=== PATIENT | female | born 1945 | race Caucasian/White ===

== ENCOUNTER 2022-10-01 08:33 | Emergency (ER) | payer MEDICARE, OTHER ==
[2022-10-01 09:21] LABS: Basophils % (A) 1 %; Eosinophils # (A) 0.1 k/uL (0-0.7); Eosinophils % (A) 1 %; HCT 38.9 % (34.0-46.0); HGB 12.3 gm/dL (11.4-16.0); Hypochromasia Slight; Lymphocytes # (A) 0.9 k/uL (1.0-4.8); Lymphocytes % (A) 15 %; MCH 29.5 pg (25.0-35.0); MCHC 31.6 g/dL (31.0-37.0); MCV 93.2 fL (80.0-100.0); Monocytes # (A) 0.3 k/uL (0-1.0); Monocytes % (A) 5 %; Neutrophils # (A) 4.4 k/uL (1.3-7.7); Neutrophils % (A) 76 %; Platelet Count 258 k/uL (150-450); RBC 4.18 m/uL (3.80-5.40); RDW 13.2 % (11.5-15.5); WBC 5.8 k/uL (3.8-10.6)
[2022-10-01 09:26] LABS: INR 0.9 (<1.2); Partial Thromboplastin Time 22.2 sec (22.0-30.0)
--- NOTE | 2022-10-01 09:38 | XR ---
EXAMINATION TYPE: XR chest 2V DATE OF EXAM: 10/01/2022 9:27 AM COMPARISON: Chest radiographs from 01/08/2011 TECHNIQUE: XR chest 2V Frontal and lateral views of the chest. CLINICAL INDICATION:Female, 76 years old with history of altered mental status; FINDINGS: Lungs/Pleura: Prominent interstitial lung markings are seen scattered throughout the lungs. No eviden ce of focal consolidation, pneumothorax or pleural effusion. Pulmonary vascularity: Unremarkable. Heart/mediastinum: Cardiomediastinal silhouette is unremarkable. Partially calcified left pulmonary h ilum lymph nodes and left lateral lung calcification are unchanged from 2011. Musculoskeletal: No acute osseous pathology. IMPRESSION: Chronic changes without acute pulmonary process. No significant change from prior.
--- NOTE | 2022-10-01 10:04 | ED ---
Neuro HPI - General Chief Complaint: Neuro Symptoms/Deficit Stated Complaint: Stroke symptoms Time Seen by Provider: 10/01/22 08:46 Source: patient, RN notes reviewed Mode of arrival: ambulatory Limitations: no limitations - History of Present Illness Is the patient presenting with stroke symptoms?: Yes Last Known Well Date: 10/01/22 Last Known Well Time: 13:00 Initial Comments: This is a 76-year-old female presents emergency Department chief complaint of possible stroke. Patient developed symptoms yesterday afternoon which she had right leg weakness, confusion. Family states that she's been having issues with recent and past memory. Patient seems to be confused at times does not describe which she wants to. Patient has no upper extremity symptoms. Patient had prior minor the past, history of hypertension. Denies any blood thinners denies any headache denies any chest pain palpitations nausea vomiting days trauma. - Related Data Home Medications: Home Medications Medication Instructions Recorded Confirmed Atorvastatin [Lipitor] 20 mg PO HS 10/01/22 10/01/22 Metoprolol Tartrate [Lopressor] 12.5 mg PO HS 10/01/22 10/01/22 lisinopriL [Zestril] 5 mg PO HS 10/01/22 10/01/22 Allergies/Adverse Reactions: Allergies Allergy/AdvReac Type Severity Reaction Status Date / Time No Known Allergies Allergy Verified 10/01/22 10:58 Review of Systems ROS Statement: Those systems with pertinent positive or pertinent negative responses have been documented in the HPI. ROS Other: All systems not noted in ROS Statement are negative. General Exam Limitations: no limitations General appearance: alert, in no apparent distress Head exam: Present: atraumatic, normocephalic, normal inspection Eye exam: Present: normal appearance, PERRL, EOMI. Absent: scleral icterus, conjunctival injection, periorbital swelling ENT exam: Present: normal exam, normal oropharynx, mucous membranes moist Neck exam: Present: normal inspection, full ROM. Absent: tenderness, meningismus, lymphadenopathy Respiratory exam: Present: normal lung sounds bilaterally. Absent: respiratory distress, wheezes, rales, rhonchi, stridor Cardiovascular Exam: Present: regular rate, normal rhythm, normal heart sounds. Absent: systolic murmur, diastolic murmur, rubs, gallop, clicks Neurological exam: Present: alert, CN II-XII intact, other (NIH 3). Absent: oriented X3 Expanded Neurological exam: Present: memory loss-remote event, memory loss-recent event Patient oriented to: Present: person, place, time Speech: Present: fluid speech Cranial nerves: EOM's Intact: Normal, Gag Reflex: Normal, Tongue Deviation: Normal, Facial Sensation: Normal, Facial Palsy with Forehead Movement: Normal, Facial Palsy without Forehead Movement: Normal Cerebellar function: Finger to Nose: Normal Upper motor neuron: Delbert Neglect: Normal Sensory exam: Upper Extremity Light Touch: Normal, Upper Extremity Pin Prick: Normal, Lower Extremity Light Touch: Normal, Lower Extremity Pin Prick: Normal Motor strength exam: RUE: 5, LUE: 5, RLE: 3, LLE: 5 Eye Response: (4) open spontaneously Motor Response: (6) obeys commands Verbal Response: (5) oriented Jacob Total: 15 Skin exam: Present: warm, dry, intact, normal color. Absent: rash Stroke MDM - Lab Data Result diagrams: 10/01/22 08:57 10/01/22 08:57 Lab Results 10/01/22 10/01/22 10/01/22 Range/Units 08:57 08:57 08:57 WBC 5.8 (3.8-10.6) k/uL RBC 4.18 (3.80-5.40) m/uL Hgb 12.3 (11.4-16.0) gm/dL Hct 38.9 (34.0-46.0) % MCV 93.2 (80.0-100.0) fL MCH 29.5 (25.0-35.0) pg MCHC 31.6 (31.0-37.0) g/dL RDW 13.2 (11.5-15.5) % Plt Count 258 (150-450) k/uL MPV 8.0 Neutrophils % 76 % Lymphocytes % 15 % Monocytes % 5 % Eosinophils % 1 % Basophils % 1 % Neutrophils # 4.4 (1.3-7.7) k/uL Lymphocytes # 0.9 L (1.0-4.8) k/uL Monocytes # 0.3 (0-1.0) k/uL Eosinophils # 0.1 (0-0.7) k/uL Basophils # 0.0 (0-0.2) k/uL Hypochromasia Slight PT 10.0 (9.0-12.0) sec INR 0.9 (<1.2) APTT 22.2 (22.0-30.0) sec Sodium 137 (137-145) mmol/L Potassium 4.1 (3.5-5.1) mmol/L Chloride 101 (98-107) mmol/L Carbon Dioxide 29 (22-30) mmol/L Anion Gap 7 mmol/L BUN 14 (7-17) mg/dL Creatinine 0.68 (0.52-1.04) mg/dL Est GFR (CKD-EPI)AfAm >90 (>60 ml/min/1.73 sqM) Est GFR (CKD-EPI)NonAf 84 (>60 ml/min/1.73 sqM) Glucose 162 H (74-99) mg/dL Calcium 9.1 (8.4-10.2) mg/dL Total Bilirubin 0.4 (0.2-1.3) mg/dL AST 28 (14-36) U/L ALT 20 (4-34) U/L Alkaline Phosphatase 127 H (38-126) U/L Troponin I (0.000-0.034) ng/mL Total Protein 7.5 (6.3-8.2) g/dL Albumin 3.9 (3.5-5.0) g/dL 10/01/22 Range/Units 08:57 WBC (3.8-10.6) k/uL RBC (3.80-5.40) m/uL Hgb (11.4-16.0) gm/dL Hct (34.0-46.0) % MCV (80.0-100.0) fL MCH (25.0-35.0) pg MCHC (31.0-37.0) g/dL RDW (11.5-15.5) % Plt Count (150-450) k/uL MPV Neutrophils % % Lymphocytes % % Monocytes % % Eosinophils % % Basophils % % Neutrophils # (1.3-7.7) k/uL Lymphocytes # (1.0-4.8) k/uL Monocytes # (0-1.0) k/uL Eosinophils # (0-0.7) k/uL Basophils # (0-0.2) k/uL Hypochromasia PT (9.0-12.0) sec INR (<1.2) APTT (22.0-30.0) sec Sodium (137-145) mmol/L Potassium (3.5-5.1) mmol/L Chloride (98-107) mmol/L Carbon Dioxide (22-30) mmol/L Anion Gap mmol/L BUN (7-17) mg/dL Creatinine (0.52-1.04) mg/dL Est GFR (CKD-EPI)AfAm (>60 ml/min/1.73 sqM) Est GFR (CKD-EPI)NonAf (>60 ml/min/1.73 sqM) Glucose (74-99) mg/dL Calcium (8.4-10.2) mg/dL Total Bilirubin (0.2-1.3) mg/dL AST (14-36) U/L ALT (4-34) U/L Alkaline Phosphatase (38-126) U/L Troponin I <0.012 (0.000-0.034) ng/mL Total Protein (6.3-8.2) g/dL Albumin (3.5-5.0) g/dL - Medical Decision Making Was pt. sent in by a medical professional or institution? @ -no Did you speak to anyone other than the patient for history? @ -family provided at home symptoms, prior medical history Did you review nursing and triage notes? @ -Agree and reviewed Were old charts reviewed? @ -no Differential Diagnosis? @ -CVA, TIA, intracranial mass, sepsis, this list is not meant to be all- inclusive EKG interpreted by me (3pts min.)? @ -EKG interpreted by me sinus rhythm with rate of 67 VT 153 QRS 88 QT/QTC/423 X-rays interpreted by me (1pt min.)? @ -Chest x-ray no acute process as interpreted by me CT interpreted by me (1pt min.)? @ -Ctbrain the brain bilateral subdural hemorrhages acute on chronic suspected, rightward midline shift 7 mm, interaxil mass. U/S interpreted by me (1pt. min.)? @ -[no] What testing was considered but not performed? (CT, X-rays, U/S, labs)? Why? @MRI was considered though patient will have performed at transfer facility What meds were considered but not given? Why? @ -Mannitol, blood pressure control were considered though patient vitals are stable. Did you discuss the management of the patient with other professionals? @ -Dr. Govea neurosurgery at [facility] Did you reconcile home meds? @ -no Was smoking cessation discussed for >3mins.? @ -no Was critical care preformed (if so, how long)? @ -35 Were there social determinants of health that impacted care today? How? (Homelessness, low income, unemployed, alcoholism, drug addiction, transportation, low edu. Level, literacy, decrease access to med. care, senior living, rehab)? @ -no Was there de-escalation of care discussed even if they declined? (Discuss DNR or withdrawal of care, Hospice)? @ -no What co-morbidities impacted this encounter? (DM, HTN, Smoking, COPD, CAD, Cancer, CVA, Hep., AIDS, mental health diagnosis, sleep apnea, morbid obesity)? @ -HTN Was patient admitted / discharged? @ -Transferred [facility] Undiagnosed new problem with uncertain prognosis? @ -yes Drug Therapy requiring intensive monitoring for toxicity (Heparin, Nitro, Insulin, Cardizem)? @ -no Were any procedures done? @ -no Diagnosis/symptom? @ -Subdural hematoma Acute, or Chronic, or Acute on Chronic? @ -Acute Uncomplicated (without systemic symptoms) or Complicated (systemic symptoms)? @ -Complicated Side effects of treatment? @ -none Exacerbation, Progression, or Severe Exacerbation] @ -no Poses a threat to life or bodily function? @ -yes Diagnosis/symptom? @ -Intracranial mass/possible aneurysm Acute, or Chronic, or Acute on Chronic? @Acute Uncomplicated (without systemic symptoms) or Complicated (systemic symptoms)? @ -Dictated Side effects of treatment? @ -[none] Exacerbation, Progression, or Severe Exacerbation] @ -[no] Poses a threat to life or bodily function? @ -[yes I did discuss case with [facility] accepts transfer. Patient's CT without contrast showed probable intra-axial mass, subdural hematoma. After discussed the case with [facility] CT was interpreted and there may be a calcified aneurysm versus mass. Patient is having no progressive symptoms vitals are stable patient was given Decadron. She does not require blood press ure control distress time. I did update family regarding current condition. - EKG Data -: EKG Interpreted by Me Past Medical History Past Medical History: Chest Pain / Angina, Hypertension, Myocardial Infarction (NH) History of Any Multi-Drug Resistant Organisms: None Reported Past Surgical History: No Surgical Hx Reported Past Psychological History: No Psychological Hx Reported Smoking Status: Never smoker Past Alcohol Use History: None Reported Past Drug Use History: None Reported Course Vital Signs 10/01/22 10/01/22 08:35 10:52 Temperature 98 F Pulse Rate 72 69 Respiratory 20 18 Rate Blood Pressure 119/79 136/80 O2 Sat by Pulse 96 98 Oximetry Critical Care Time Critical Care Time: Yes Total Critical Care Time: 35 Disposition Clinical Impression: Subdural hematoma, Intracranial mass, Midline shift of brain Narrative: Possible cerebral aneurysm Disposition: OTHER INSTITUTION NOT DEFINED Referrals: Reema Chavez MD [Primary Care Provider] - 1-2 days Time of Disposition: 10:55 - Out of Hospital Transfer - Req. Specs Out of Hospital Transfer - Requested Specifics: Other Emergency Center ([facility])
[2022-10-01 10:09] LABS: ALT 20 U/L (4-34); AST 28 U/L (14-36); African American GFR (CKD) >90 (>60 ml/min/1.73 sqM); Albumin 3.9 g/dL (3.5-5.0); Alkaline Phosphatase 127 U/L (38-126); Anion Gap 7 mmol/L; Blood Urea Nitrogen 14 mg/dL (7-17); Calcium 9.1 mg/dL (8.4-10.2); Carbon Dioxide 29 mmol/L (22-30); Chloride 101 mmol/L (98-107); Glucose 162 mg/dL (74-99); Non-African American GFR(CKD) 84 (>60 ml/min/1.73 sqM); Potassium 4.1 mmol/L (3.5-5.1); Sodium 137 mmol/L (137-145); Total Bilirubin 0.4 mg/dL (0.2-1.3); Total Protein 7.5 g/dL (6.3-8.2)
[2022-10-01] MEDS ORDERED: DEXAMETHASONE SOD PHOSPHATE 10 MG/ML 1 ML VIAL IVP STA (10:28)
--- NOTE | 2022-10-01 10:45 | CT ---
EXAMINATION TYPE: CT brain wo con CT DLP: 1133.7 mGycm, Automated exposure control for dose reduction was used. DATE OF EXAM: 10/01/2022 10:29 AM COMPARISON: None. CLINICAL INDICATION:Female, 76 years old with history of Neuro deficit, acute, stroke suspected, [place]te red mental, neuro deficits TECHNIQUE: Brain: Axial CT images of the brain were obtained with coronal and sagittal reformats created and rev iewed. Contrast used: None. Oral contrast used: None. FINDINGS: Brain: Extra-axial spaces: There is acute on subacute/chronic appearing blood products along the left subdur al space which are predominantly lower density with areas of high density blood products more towards skull vertex. On the right there is low density blood products. Represent subacute/chronic subdural hemorrhage. The left measures up to 1.9 cm and on the right up to 0.7 cm Ventricular system: Within normal limits Cerebral parenchyma: There what is thought to be an intra-axial mass with surrounding's vasogenic castro ma within the right temporal lobe in the of the right middle cranial fossa measuring up to 3.6 x 3.2 x 3.3 cm. Is predominantly peripheral calcification. No acute intraparenchymal hemorrhage. The villalobos- white junction is well differentiated. Cerebellum: Unremarkable. Mass effect: There is 7 mm subfalcine herniation rightward Intracranial vasculature: unremarkable Soft tissues: Normal. Calvarium/osseous structures: No depressed skull fracture. Paranasal sinuses and mastoid air cells: Mild scattered paranasal sinus disease. Visualized orbits: Bilateral aphakia Findings communicated to Dr. Stephon Jones, PAC on 10/01/2022 10:[address] Alex Simms. IMPRESSION: 1. Acute on subacute/chronic left and subacute/chronic right subdural hemorrhages. There is 7 mm rig htward midline shift. 2. Right temporal lobe thought to be intra-axial mass with predominantly peripheral calcification an d surrounding vasogenic edema. Further evaluation with MRI with IV contrast recommended for better cl assification. 3. No loss of villalobos-white junction differentiation to suggest stroke.r
[2022-10-01 10:54] VITALS: RESP 18
--- NOTE | 2022-10-01 11:21 | CT ---
EXAMINATION TYPE: CT angio head neck CT DLP: 309.6 mGycm, Automated exposure control for dose reduction was used. DATE OF EXAM: 10/01/2022 11:03 AM COMPARISON: Same day CT. CLINICAL INDICATION:Female, 76 years old with history of Neuro deficit, acute, stroke suspected, Neur o deficits, altered mental TECHNIQUE: Axially acquired helical CT angiogram of the head and neck was obtained with contrast. Axi al images are supplemented with 3D reconstructions which [facility] NASCET criteria used. Contrast used:65 mL of Isovue 370 with IV Contrast, Oral contrast used: None. FINDINGS: CTA HEAD: The right temporal lobe middle cranial fossa lesion has a dilated tortuous vessel extending towards t he lesion where it abruptly terminates along the edge of this lesion. The dilated tortuous vessel elder sures up to 7 mm in thickness. No evidence of active arterial extravasation. The left MCA/JOSE bifurcation saccular aneurysmal dilation measuring demonstrates a 3 x 2 x 3 mm. No e vidence of extravasation. There remains evidence of bilateral subdural hemorrhages, acute on subacute/chronic on the left and s ubacute/chronic on the right. The visualized portions of the internal carotid arteries, middle cerebral arteries, anterior cerebral arteries, and posterior cerebral arteries are patent. Mild atherosclerosis of the intracranial intra cranial arteries are present without hemodynamically significant stenosis. The basilar and vertebral arteries are patent. There is prominence of the bifurcation of the basilar artery measuring up to 3 x 4 mm. CTA NECK: Right Carotid System: The common carotid artery and external carotid artery are patent. The carotid bifurcation demonstrate s calcified atherosclerotic plaque with greater than 70% stenosis. The remaining portions of the inte rnal carotid artery demonstrate normal size without significant narrowing. Left Carotid System: The common carotid artery and external carotid artery are patent. The carotid bifurcation demonstrate s calcified plaque with at least 25% stenosis. The remaining portions of the internal carotid artery demonstrate normal size without significant narrowing. Vertebral arteries are patent without evidence hemodynamically significant stenosis. There is a three-vessel aortic arch. The origins of the great vessels are patent. No evidence of hemo dynamically significant stenosis. Findings communicated to Dr. Stephon Jones, PAC on 10/01/2022 11:[address] Alex Simms. IMPRESSION: 1. Right middle cranial fossa partially calcified lesion has a dilated tortuous arterial vessel exte nding towards it which abruptly terminates as it enters the lesion along the periphery. This vessel m easuring up to 7 mm. Findings most compatible with thrombosed/calcified aneurysm measuring up to 3.8 cm. No evidence of active extravasation. 2. 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 3. Mild ectasia of the basilar artery bifurcation measuring up to 3 x 4 mm. Attention on follow-up i maging. 4. At least 70% stenosis of the right carotid bifurcation secondary to calcified plaque. 5. 25% stenosis of the left carotid bifurcation secondary to calcified plaque. 6. No evidence of dissection of the cervical internal carotid arteries or vertebral arteries. 2. No evidence of intracranial high-grade stenosis.
[2022-10-01 11:38] VITALS: BP 129/89; PULSE 79; TEMP 98.3
== END 2022-10-01 11:35 | disposition other institution (70) ==
LOC: EC 08:33
DX: I62.00 Nontraumatic subdural hemorrhage, unspecified (principal); R90.0 Intracranial space-occupying lesion found on diagnostic imaging of central nervous system; G93.5 Compression of brain
CPT/HCPCS: 36415; 93005; 80053; 84484; 85025; 85610; 85730; 71046; 70496; 70450; 70498; 99291; 96374; J1100

== ENCOUNTER → 2022-10-12 | Outpatient (CLI) | payer MEDICARE ==
--- NOTE | 2022-10-12 13:34 | CT ---
EXAMINATION TYPE: CT brain wo con CT DLP: 926.5 mGycm, Automated exposure control for dose reduction was used. DATE OF EXAM: 10/12/2022 1:16 PM COMPARISON: Prior CT Brain from 10/01/22, CTA head and neck 10/01/22. CLINICAL INDICATION:Female, 76 years old with history of S06.5XAA TRAUM SUBDR HEM WITH LOC STATUS UNK , f/u subdural hematoma TECHNIQUE: Brain: Multiple axial CT images of the brain were obtained without IV contrast. Coronal and sagittal reformats reviewed. FINDINGS: Brain: Extra-axial spaces: Mild decrease in size of left subdural hematoma overlying the cerebral convexity with maximum thickness of 1.6 cm, previously 2.1 cm. There is some pneumocephalus in the apex. Ventricular system: Within normal limits Cerebral parenchyma: No acute intraparenchymal hemorrhage. Stable mass within the middle cranial zachery a at the intra-axial measuring up to 3.2 cm. It is predominantly peripherally calcified. There is tres rounding vasogenic edema in the right temporal lobe that is unchanged. The villalobos-white junction is wel l differentiated. Cerebellum: Unremarkable. Mass effect: No evidence of midline shift. Intracranial vasculature: Atherosclerotic calcifications of the intracranial vessels. Soft tissues: Postsurgical changes with skin joel along the left lateral vertex. Calvarium/osseous structures: No depressed skull fracture. Postsurgical changes of the left lateral c alvarium which two bore holes identified. Paranasal sinuses and mastoid air cells: The mastoid air cells are clear. Frothy opacity within the l eft sphenoid sinus. Visualized orbits: Bilateral aphakia IMPRESSION: 1. Postsurgical changes with mild decrease in size of left subdural hematoma. No midline shift. Ther e is trace pneumocephalus related to recent surgery. Continued follow-up is recommended. 2. Stable peripherally calcified mass within the right temporal lobe which is thought to be intra-ax ial. There is similar surrounding vasogenic edema. This again may represent a thrombosed/calcified an eurysm when compared to prior CTA head/neck versus other etiologies. Consider further evaluation with MRI of brain with and without IV contrast. 3. Correlate for acute sphenoid sinusitis.
== END | disposition home or self-care (01) ==
LOC: RADCTMAIN 12:50
PROVIDERS: ATTEND Physician Assistant
DX: S06.5XAA Traumatic subdural hemorrhage with loss of consciousness status unknown, initial encounter (principal); G93.89 Other specified disorders of brain; R22.0 Localized swelling, mass and lump, head
CPT/HCPCS: 70450

== ENCOUNTER → 2023-01-07 | Outpatient (CLI) | payer MEDICARE ==
--- NOTE | 2023-01-07 09:46 | CT ---
EXAMINATION TYPE: CT brain wo con DATE OF EXAM: 01/07/2023 COMPARISON: 10/12/2022 INDICATION: NONTRAUMATIC CHRONIC SUBDURAL HEMORRHAGE DLP: 999.8 mGycm, Automated exposure control for dose reduction was used. CONTRAST: None CT of the brain is performed utilizing 3 mm thick sections through the posterior fossa and 3 mm thick sections through the remaining calvarium. Study is performed within 24 hours of arrival to the hosp ital. There is a 3.3 cm hyperdensity within the right middle cranial fossa. This appears stable from compar destin. No significant adjacent edema is evident. Previous chronic left subdural hematoma has largely resolved. Minimal 0.4 cm residual is in the poste rior parietal region no interval hemorrhage is identified. Pneumocephalus has resolved. No acute infarcts are evident. Periventricular white matter hypodensity is present, likely on the bas is of chronic white matter ischemic changes. Ventricles and sulci are prominent for the patient age. Paranasal sinuses and mastoid air cells within the [id number] are clear. IMPRESSIONS: 1. Minimal residual 0.4 cm subdural hematoma. This appears significantly diminished in size from th e comparison study. 2. Stable calcified masslike area right middle cranial fossa. 3. Stable atrophy with chronic appearing periventricular white matter ischemic-type changes.
== END | disposition home or self-care (01) ==
LOC: RADCTMAIN 09:14
PROVIDERS: ATTEND Student in an Organized Health Care Education/Training Program
DX: I62.03 Nontraumatic chronic subdural hemorrhage (principal); G31.9 Degenerative disease of nervous system, unspecified; G93.89 Other specified disorders of brain
CPT/HCPCS: 70450

== ENCOUNTER → 2024-04-21 | Outpatient (CLI) | payer MEDICARE ==
[2024-04-21 13:11] LABS: African American GFR (CKD) >90 (>60 ml/min/1.73 sqM); Blood Urea Nitrogen 15 mg/dL (7-17); Non-African American GFR(CKD) 88 (>60 ml/min/1.73 sqM)
--- NOTE | 2024-04-21 16:52 | CT ---
EXAMINATION TYPE: CT brain wo con CT DLP: 1126.18 mGycm, Automated exposure control for dose reduction was used. DATE OF EXAM: 04/21/2024 1:58 PM COMPARISON: Prior CT Brain from 01/07/2023. CLINICAL INDICATION:Female, 78 years old with history of I61.9 NONTRAUMATIC INTRACEREBRAL HEMORRHAGE, I62.9, Loss of balance after recent fall TECHNIQUE: Brain: Axial CT images of the brain were obtained with coronal and sagittal reformats created and rev iewed. Contrast used: None. Oral contrast used: None. FINDINGS: Brain: Extra-axial spaces: No abnormal extra-axial fluid collections. No residual subdural hematoma Ventricular system: Within normal limits Cerebral parenchyma: No acute intraparenchymal hemorrhage or mass effect. The villalobos-white junction is well differentiated, except within the aneurysm clip in the right soboba of Oliver region. There is a hyperdense calcified near the aneurysmal clip which is unchanged since January 07, 2023. Associated white matter hypodensity is unchanged. Low-density white matter of chronic microangiopathy (small ve ssel ischemic disease) is unchanged. Cerebellum: Unremarkable. Mass effect: No evidence of midline shift. Intracranial vasculature: unremarkable Soft tissues: Normal. Calvarium/osseous structures: No depressed skull fracture. Paranasal sinuses and mastoid air cells: Mild scattered paranasal sinus disease. Visualized orbits: Orbital contents are intact. IMPRESSION: 1. No acute intracranial process. 2. Stable calcified masslike area right middle cranial fossa. 3. Stable atrophy with chronic appearing periventricular white matter ischemic- type changes.
--- NOTE | 2024-04-21 17:10 | CT ---
EXAMINATION TYPE: CT angio head CT DLP: 1300.82 mGycm, Automated exposure control for dose reduction was used. DATE OF EXAM: 04/21/2024 1:58 PM COMPARISON: . CLINICAL INDICATION:Female, 78 years old with history of I61.9 NONTRAUMATIC INTRACEREBRAL HEMORRHAGE, I62.9; PHH, Loss of balance after recent fall TECHNIQUE: CT angio head Axially acquired helical CT angiogram was obtained. Axial images are supplem ented with 3D reconstructions which were post-processed at an independent workstation. NASCET criteri a used. Contrast used:100ml mL of Isovue 370 with IV Contrast, none Oral contrast used: none FINDINGS: The right temporal lobe middle cranial fossa lesion has a dilated tortuous vessel extending towards the lesion where it abruptly terminates along the edge of this lesion. The dilated tortuous vessel measures up to 7 mm in thickness. No evidence of active arterial extravasation. The left MCA/JOSE bifurcation saccular aneurysmal dilation measuring 3 x 2 x 3 mm. Is reidentified. No evidence of extravasation. There remains evidence of bilateral subdural hemorrhages, acute on subacute/chronic on the left and subacute/chronic on the right. The visualized portions of the internal carotid arteries, middle cerebral arteries, anterior cerebral arteries, and posterior cerebral arteries are patent. Mild atherosclerosis of the intracranial intracranial arteries are present without hemodynamically significant stenosis. The basilar and vertebral arteries are patent. There is prominence of the bifurcation of the basilar artery measuring up to 3 x 4 mm. Vertebral arteries are patent without evidence hemodynamically significant stenosis. IMPRESSION: 1. Right middle cranial fossa partially calcified lesion has a dilated tortuous arterial vessel extending towards it which abruptly terminates as it enters the lesion along the periphery. This vessel measuring up to 7 mm. Findings most compatible with thrombosed/calcified aneurysm measuring up to 3.8 cm. No evidence of active extravasation. 2. Aneurysm clip across right MCA M1 segment feeding vessel 3. 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 Mild ectasia of the basilar artery bifurcation measuring up to 3 x 4 mm. Attention on follow-up imaging. 2. No evidence of intracranial high-grade stenosis.
== END | disposition home or self-care (01) ==
LOC: RADCTMAIN 12:27
PROVIDERS: ATTEND Student in an Organized Health Care Education/Training Program
DX: I67.82 Cerebral ischemia (principal); G93.89 Other specified disorders of brain; G31.9 Degenerative disease of nervous system, unspecified; I71.9 Aortic aneurysm of unspecified site, without rupture; I62.9 Nontraumatic intracranial hemorrhage, unspecified
CPT/HCPCS: 82565; 84520; 70496; 70450; 36415; Q9967